=== PATIENT | female | born 2000 | race Caucasian/White ===

== ENCOUNTER 2019-01-25 22:03 | Observation (INO) | payer MEDICAID | END 2019-01-25 23:15 | disposition home or self-care (01) | LOC: 8 EST LDRP 22:03 | PROVIDERS: ADMIT Obstetrics & Gynecology; ATTEND Obstetrics & Gynecology | DX: O26.853 Spotting complicating pregnancy, third trimester (principal); Z3A.33 33 weeks gestation of pregnancy | CPT/HCPCS: 99281; G0378 ==